=== PATIENT | male | born 1945 | race African-American/Black ===

== ENCOUNTER 2016-12-21 17:27 | Inpatient (IN) | payer MEDICARE, BC ==
[~2016-12-21] VITALS: Ht 172.7 cm; Wt 111.1 kg
--- NOTE | 2016-12-21 17:31 | NUR ---
[facility]ra from [employer] due to high blood pressure and sudden episode of lethargy. Patient is aao3, appears in no acute distress, respiration even and unlabored. Denies chest pain or discomfort. Patient's skin is warm to touch and non diaphoretic. Afebrile. Iv noted on left hand. will cont to monitor
--- NOTE | 2016-12-21 17:47 | NUR ---
patient was taken to ct
[2016-12-21 18:05] LABS: BASOPHILS # (AUTO) 0.1 /CMM (0.0-0.2); EOSINOPHILS # (AUTO) 0.2 /CMM (0.0-0.7); WHITE BLOOD COUNT (AUTO) 13.1 K/uL (4.3-11.0)
[2016-12-21] MEDS ORDERED: SIMV40TA5 PO (18:16)
[2016-12-21] MEDS ORDERED: LABE100T PO (18:16)
[2016-12-21] MEDS ORDERED: PANT40TA4 PO (18:16)
[2016-12-21] MEDS ORDERED: LEVO112T7 PO (18:16)
[2016-12-21] MEDS ORDERED: AMLO5TAB2 PO (18:16)
[2016-12-21] MEDS ORDERED: LOSA1TAB35 PO (18:16)
[2016-12-21] MEDS ORDERED: METF500T4 PO (18:16)
[2016-12-21] MEDS ORDERED: NAPR500T3 PO (18:16)
--- NOTE | 2016-12-21 18:17 | NUR ---
iv accesseed to [id number]. blood sample sent to lab
--- NOTE | 2016-12-21 18:17 | NUR ---
urine sample sent to lab
[2016-12-21 18:18] LABS: BASOPHILS % (AUTO) 0.4 % (0.0-2.0); EOSINOPHILS % (AUTO) 1.3 % (0.0-6.0); HEMATOCRIT 47 % (39-51); HEMOGLOBIN 15.9 g/dL (13.5-17.5); LYMPHOCYTES # (AUTO) 1.4 /CMM (0.8-4.8); MEAN CORPUSCULAR HEMOGLOBIN 29 PG (26.0-33.0); MEAN CORPUSCULAR HGB CONC 34 g/dl (31.0-36.0); MEAN CORPUSCULAR VOLUME 86 fL (80-96); MONOCYTES # (AUTO) 0.9 /CMM (0.1-1.30); MONOCYTES % (AUTO) 6.7 % (2.0-12.0); NEUTROPHILS # (AUTO) 10.5 /CMM (1.8-8.9); NEUTROPHILS % (AUTO) 80.6 % (43.0-81.0); PLATELET COUNT (AUTO) 251 /CMM (150-450); RDW COEFFICIENT OF VARIATION 14.2 (11.5-15.0); RED BLOOD CELL COUNT(AUTO) 5.44 MIL/uL (4.5-6.0)
[2016-12-21 18:19] LABS: CALCIUM, SERUM 9.1 mg/dL (8.5-10.1); CARBON DIOXIDE 30 mmol/L (21-32); CHLORIDE 102 mmol/L (98-107); CREATININE 1.4 mg/dL (0.6-1.3); GFR 61 mL/min (>60); GLUCOSE 126 mg/dL (74-106); SODIUM SERUM 139 mmol/L (136-145); UREA NITROGEN, BLOOD 12 mg/dL (7-18)
[2016-12-21 18:23] LABS: INR 0.99 (0.87-1.13); PROTHROMBIN TIME 10.3 SECS (9.5-12.7)
[2016-12-21 18:25] LABS: ALANINE AMINOTRANSFERASE 26 U/L (12-78); ALCOHOL, BLOOD < 3 mg/dL (0-0); ALKALINE PHOSPHATASE 77 U/L (46-116); ASPARTATE AMINOTRANSFERASE 26 U/L (15-37); BILIRUBIN,DIRECT 0.1 mg/dL (0.0-0.2); BILIRUBIN,TOTAL 0.4 mg/dL (0.2-1.0); TOTAL PROTEIN, SERUM 7.8 g/dL (6.4-8.2)
[2016-12-21 18:27] LABS: TROPONIN I < 0.017 ng/mL (0.00-0.056)
[2016-12-21 18:28] LABS: ACETAMINOPHEN < 2 ug/ml (10-30); SALICYLATE < 2.8 mg/dL (2.8-20.0)
[2016-12-21 18:48] LABS: CANNABINOID, URINE NEGATIVE (NEGATIVE); PHENCYCLIDINE SCREEN,URINE NEGATIVE (NEGATIVE)
[2016-12-21 18:50] LABS: THYROID STIMULATING HORMONE 0.723 uIU/mL (0.358-3.74)
[2016-12-21 19:03] LABS: SERUM AMMONIA 10 umol/L (11-32)
[2016-12-21] MEDS ORDERED: IV NS 0.9% 250 ML IV ONE (19:12)
[2016-12-21] MEDS ORDERED: IOHEXOL-350 100 ML VIAL IV ONE (19:12)
[2016-12-21] MEDS ORDERED: ACETAMINOPHEN ES 500 MG TABLET ONE ×2 (19:27→19:52)
[2016-12-21] MEDS ORDERED: ACETAMINOPHEN ES 500 MG TABLET PO ONE (19:30)
--- NOTE | 2016-12-21 19:33 | NUR ---
Sent to CT.
[2016-12-21] MEDS ORDERED: CEFTRIAXONE 1GM BAG (ER ONLY) 50 ML IV ONE (19:52)
[2016-12-21] MEDS ORDERED: IV NS 0.9% 1,000 ML ONE (19:52)
[2016-12-21] MEDS ORDERED: IV SET PRIMARY 1 EA INFUS.SET MC ONE (19:52)
[2016-12-21] MEDS ORDERED: AZITHROMYCIN 500 MG VIAL ONE (19:52)
[2016-12-21] MEDS ORDERED: IV SET PRIMARY PUMP SET 1 EA INFUS.SET MC ONE ×2 (19:53→20:28)
[2016-12-21] MEDS ORDERED: IV D5W 250 ML IV ONE (19:53)
[2016-12-21] MEDS ORDERED: CEFTRIAXONE 2 G in IV D5W 50 ML IV ONE (20:00)
[2016-12-21] MEDS ORDERED: IV NS 0.9% 1,000 ML BAG IV ONE (20:00)
[2016-12-21] MEDS ORDERED: AZITHROMYCIN 500 MG in IV D5W 250 ML IV ONE (20:00)
--- NOTE | 2016-12-21 20:08 | NUR ---
eddie rosa talking to pt abraham pt.
[2016-12-21] MEDS ORDERED: NICARDIPINE IN DEXTROSE,ISO-OS 0 ML IV ONE (20:28)
[2016-12-21] MEDS ORDERED: NICARDIPINE IN DEXTROSE,ISO-OS 200 ML IV PRN (20:30)
--- NOTE | 2016-12-21 20:38 | NUR ---
PAGED SALES RECEPTIONIST PANEL DR SCHNEIDER
--- NOTE | 2016-12-21 20:50 | NUR ---
er talking to dr. bautista regarding pt admission. will jack for report.
--- NOTE | 2016-12-21 20:53 | NUR ---
er talking to dr. bautista regarding pt admission. will jack for report.
--- NOTE | 2016-12-21 20:57 | NUR ---
report called to it telecom technician. will transport pt via acls protocol.
[2016-12-21] MEDS ORDERED: ASPIRIN 81 MG TAB.CHEW PO ONE (21:00)
[2016-12-21] MEDS ORDERED: ASPIRIN 81 MG TAB.CHEW ONE (21:22)
[2016-12-21 21:45] VITALS: BP 153/89
--- NOTE | 2016-12-21 21:45 | NUR ---
RN OPEN NOTES RECEIVED PATIENT FROM ER VIA GURNEY WITH AT BEDSIDE. A/O X4 BUT SLIGHTLY LETHARGIC. NO SIGNS OF DISTRESS OR DISCOMFORT. BREATHING EVEN AND UNLABORED. ATTACHED PATIENT TO TELE MONITOR WITH SR 98 NOTED. PATIENT HAS IV ACCESS IN RAC WITH ZITHROMAX CURRENTLY INFUSING. ORIENTED PATIENT AND FAMILY TO UNIT AND ROOM. BED IN LOW LOCKED POSITION WITH SIDE RAILS X2. CALL LIGHT WITHIN REACH. WILL CONTINUE TO MONITOR.
[2016-12-21 22:00] VITALS: BP 153/89
[2016-12-21] MEDS ORDERED: SIMVASTATIN 40 MG TABLET PO SCH (22:00)
[2016-12-21] MEDS ORDERED: HYDROCODONE/APAP 5/325MG 1 EACH TABLET PO PRN (22:00)
[2016-12-21] MEDS ORDERED: ENOXAPARIN SODIUM 40 MG/0.4 ML DISP.SYRIN SQ SCH (22:00)
[2016-12-21] MEDS ORDERED: Z GUARD REMEDY 2 OZ OINT TP PRN (22:00)
[2016-12-21] MEDS ORDERED: MAG HYDROX/AL HYDROX/SIMETH 30 ML UDC PO PRN (22:00)
[2016-12-21] MEDS ORDERED: MAGNESIUM HYDROXIDE 30 ML UDC PO PRN (22:00)
[2016-12-21] MEDS ORDERED: ZOLPIDEM TARTRATE 5 MG TABLET PO PRN (22:00)
[2016-12-21] MEDS ORDERED: ACETAMINOPHEN 325 MG TABLET PO PRN (22:00)
[2016-12-21] MEDS ORDERED: ONDANSETRON HCL/PF 4 MG/2 ML VIAL IVP PRN (22:00)
[2016-12-21] MEDS ORDERED: IV NS 0.9% 1,000 ML IV SCH (22:00)
[2016-12-21] MEDS ORDERED: ENOXAPARIN SODIUM 40 MG/0.4 ML DISP.SYRIN SQ ONE (23:03)
[2016-12-21] MEDS ORDERED: SECONDARY IV SET 1 EA INFUS.SET MC ONE (23:07)
[2016-12-22] VITALS: BP 149/101
[2016-12-22] MEDS ORDERED: DEXTROSE 50%-WATER 50 ML DISP.SYRIN IV PRN (00:30)
[2016-12-22] MEDS ORDERED: AZITHROMYCIN 500 MG in IV D5W 250 ML IV SCH ×2 (00:30→21:00)
[2016-12-22] MEDS ORDERED: CLONIDINE HCL 0.1 MG TABLET PO PRN (00:30)
[2016-12-22] MEDS ORDERED: *INSULIN REGULAR(HUMULIN R)HUM 100 UNIT/ML VIAL SQ PRN (00:30)
[2016-12-22] MEDS ORDERED: INSULIN REGULAR, HUMAN 100 UNIT/ML 3 ML VIAL SQ PRN (00:30)
[2016-12-22] MEDS ORDERED: CEFTRIAXONE 1 G in IV D5W 50 ML IV SCH ×2 (00:30→20:00)
--- NOTE | 2016-12-22 00:30 | NUR ---
RN NOTES DID NOT ADMINISTER ROCEPHIN AND ZITHROMAX, GIVEN IN ER. AWARE.
[2016-12-22 02:30] VITALS: BP 149/101
[2016-12-22] MEDS ORDERED: CLONIDINE HCL 0.1 MG TABLET ONE (03:04)
--- NOTE | 2016-12-22 03:13 | NUR ---
RN NOTES PATIENT BP 149/101. ADMINISTERED CLONIDINE 0.1MG ORDERED. MD AWARE. WILL CONTINUE TO MONITOR.
[2016-12-22 04:00] VITALS: BP 148/84
[2016-12-22] MEDS: BLOOD SUGAR DIAGNOSTIC 1 EACH STRIP VI SCH ×2 (06:27→12:28)
--- NOTE | 2016-12-22 06:44 | NUR ---
RN CLOSING NOTES PATIENT RESTING IN BED. A/O X4 NO LONGER LETHARGIC. NO SIGNS OF DISTRESS OR DISCOMFORT. BREATHING EVEN AND UNLABORED. ON TELE MONITOR WITH SR 78 NOTED. PATIENT HAS IV ACCESS IN RAC WITH NS INFUSING. PATENT AND INTACT, NO SIGNS OF REDNESS OR INFILTRATION. NO SIGNIFICANT CHANGES THROUGH THE NIGHT. PATIENT KEPT CLEAN DRY AND COMFORTABLE. BED IN LOW LOCKED POSITION WITH SIDE RAILS X2. CALL LIGHT WITHIN REACH. WILL ENDORSE TO AM SHIFT FOR SERAFIN..
[2016-12-22 06:58] VITALS: BP 148/84
[2016-12-22 07:11] LABS: BASOPHILS % (AUTO) 0.3 % (0.0-2.0); EOSINOPHILS # (AUTO) 0.1 /CMM (0.0-0.7); EOSINOPHILS % (AUTO) 1.1 % (0.0-6.0); HEMATOCRIT 44 % (39-51); HEMOGLOBIN 14.8 g/dL (13.5-17.5); LYMPHOCYTES # (AUTO) 3.1 /CMM (0.8-4.8); LYMPHOCYTES % (AUTO) 26.6 % (20.0-44.0); MEAN CORPUSCULAR HEMOGLOBIN 29 PG (26.0-33.0); MEAN CORPUSCULAR HGB CONC 33 g/dl (31.0-36.0); MEAN CORPUSCULAR VOLUME 87 fL (80-96); MONOCYTES # (AUTO) 1.1 /CMM (0.1-1.30); MONOCYTES % (AUTO) 9.3 % (2.0-12.0); NEUTROPHILS # (AUTO) 7.3 /CMM (1.8-8.9); NEUTROPHILS % (AUTO) 62.7 % (43.0-81.0); PLATELET COUNT (AUTO) 247 /CMM (150-450); RDW COEFFICIENT OF VARIATION 15.2 (11.5-15.0); RED BLOOD CELL COUNT(AUTO) 5.11 MIL/uL (4.5-6.0); WHITE BLOOD COUNT (AUTO) 11.6 K/uL (4.3-11.0)
--- NOTE | 2016-12-22 07:15 | NUR ---
HEALTH INFORMATION MANAGERS OPENING NOTES REPORT RECEIVED AT THE BEDSIDE. PATIENT IS RESTING COMFORTABLY IN BED. PATIENT DENIES PAIN AT THIS TIME. HEART RATE SR 66. BED IN A LOW POSITION, CALL LIGHT WITHIN PATIENT REACH. WILL CONTINUE TO MONITOR.
[2016-12-22 07:18] LABS: CALCIUM, SERUM 8.2 mg/dL (8.5-10.1); CREATININE 1.2 mg/dL (0.6-1.3); MAGNESIUM 1.7 mg/dL (1.8-2.4); PHOSPHORUS 3.9 mg/dL (2.5-4.9); POTASSIUM 3.6 mmol/L (3.5-5.1)
[2016-12-22] MEDS ORDERED: LEVOTHYROXINE SODIUM 112 MCG TABLET PO SCH (07:30)
[2016-12-22] MEDS ORDERED: PANTOPRAZOLE 40 MG TABLET.DR PO SCH (07:30)
[2016-12-22 08:00] VITALS: BP 148/84
[2016-12-22] MEDS ORDERED: IV NS 0.9% 1,000 ML IV PRN (08:34)
[2016-12-22] MEDS ORDERED: AMLODIPINE BESYLATE 5 MG TABLET PO SCH (09:00)
[2016-12-22] MEDS ORDERED: Medication Not On Formulary EA (Losartan/Hydrochlorothiazide (Losartan-Hctz 100-12.5 Mg PO SCH (09:00)
[2016-12-22] MEDS ORDERED: LOSARTAN POTASSIUM 50 MG TABLET PO SCH (09:00)
[2016-12-22] MEDS ORDERED: LABETALOL HCL (100MG) 100 MG TABLET PO SCH (09:00)
[2016-12-22] MEDS ORDERED: ASPIRIN 325 MG TABLET PO SCH (09:00)
[2016-12-22] MEDS ORDERED: HYDROCHLOROTHIAZIDE 25 MG TABLET PO SCH (09:00)
[2016-12-22 09:09] VITALS: BP 148/84
[2016-12-22] MEDS ORDERED: SECONDARY IV SET 1 EA INFUS.SET MC ONE (09:47)
[2016-12-22] MEDS: Magnesium 1GM/D5W 100ML PREMIX 100 ML IV SCH ×3 (09:53→12:29)
[2016-12-22] MEDS ORDERED: LEVO750T21 PO (09:57)
[2016-12-22] MEDS ORDERED: ASPI-605 PO (09:57)
[2016-12-22] MEDS ORDERED: LACT1CAP71 PO (10:20)
--- NOTE | 2016-12-22 14:12 | NUR ---
DISCHARGE NOTE DISCHARGE INSTRUCTIONS GIVEN TO THE PATIENT AND ABLE TO UNDERSTAND. ALL PAPERWORK SIGNED AND BELONGINGS ACCOUNTED FOR. PATIENT DENIES PAIN OR DIZZINESS AT THIS TIME. NO SOB OR DISTRESS NOTED. FLU AND PNEUMONIA VACCINES NOT GIVEN PATIENT ALREADY RECEIVED BOTH JUN 2016. SKIN IS INTACT, NO PICTURES NEEDED. IV DISCONNECTED AT PRESSURE APPLIED, NO BLEEDING NOTED AT THE SITE. PAPERWORK AND PRESCRIPTION GIVEN TO THE PATIENT. PATIENT LEFT IN STABLE CONDITION, AMBULATORY WITH TO HOME.
[2016-12-22] MEDS ORDERED: SIMVASTATIN 20 MG TABLET PO SCH (22:00)
== END 2016-12-22 14:10 | disposition home or self-care (01) | DRG 193 ==
LOC: ER 17:28 → TELE 21:31 → MED 12-22 09:16
PROVIDERS: ADMIT Internal Medicine; ATTEND Internal Medicine
DX: J15.9 Unspecified bacterial pneumonia (principal); N17.0 Acute kidney failure with tubular necrosis; G92 Toxic encephalopathy; K21.9 Gastro-esophageal reflux disease without esophagitis; I11.9 Hypertensive heart disease without heart failure; E78.5 Hyperlipidemia, unspecified; E11.9 Type 2 diabetes mellitus without complications; E03.9 Hypothyroidism, unspecified; E83.42 Hypomagnesemia; E86.0 Dehydration
CPT/HCPCS: 36415; 70450-TC; 70496-TC; 71010-TC; 80048-TC; 80061-TC; 80076-TC; 80305; 82140-TC; 82962-TC; 83605-TC; 83735-TC; 84100-TC; 84443-TC; 84484-TC; 85025-TC; 85730-TC; 87040-TC; 87081-TC; A4606; G0480; G6039-TC; J0456; J0696; J1650; J1815; J3475; J7030; J7050; J7060; Q9967; Z7610